=== PATIENT | male | born 2000 | race African-American/Black ===

== ENCOUNTER 2022-04-14 09:12 | Emergency (ER) | payer BC, SELFPAY ==
[2022-04-14] VITALS (36 sets, daily range): BP systolic 138–165; BP diastolic 54–84; PULSE 46–70; RESP 9–24; TEMP 36.2–36.8; O2SAT 98–100
--- NOTE | 2022-04-14 09:00 | RT.EKG_ITS ---
APPROVED REPORT Exam: Resting ECG Reason for Exam: chest pain Patient Location: E HR:58 bpm ECG Measurements Heart Rate 58 AXIS [place] 185 P 57 QRSd 92 QRS 57 QT 386 T 9 QTc 380 Conclusion Bradycardia with irregular rate...V-rate 52- 70, mean < 60
--- NOTE | 2022-04-14 09:21 | ED.GENADUL_ITS ---
Discharge Plan Disposition Patient Disposition: Against Medical Advice Discharge Details Chief Complaint: Chest Pain Clinical Impression: Chest pain, COVID Primary Care Provider: Rosy,Local ED Provider: Raj Quiles Home Meds and New Rx's Prescriptions: No Action No Known Home Meds Discharge Instructions Instructions: COVID-19 (Coronavirus Disease 2019) (ED) Additional Instructions: you tested positive for covid and your blood work showed you likely have inflammation of the heart follow up with your primary care provider as soon as possible if you have worsening pain, difficulty breathing or persistent vomiting return to the emergency department Medical Decision Making 21 yo male who denies chronic medical problems, no smoking/alcohol/drug use, comes in with chest pain for the last 3 days primarily when he wakes up in the morning. Denies dyspnea, fevers, chills, back pain, abdominal pain, radiation of pain, diaphoresis, n/v. He states it feels like an ache in the anterior chest. No known trauma. He arrives stable and speaking clearly in no distress, clear lung sounds, no murmurs, no jvd, no leg swelling or calf tenderness, soft nontender abdomen. Heart score is 0, will obtain troponin. He is perc negative so doubt PE and no tearing back pain to suggest dissection. pt stable resting comfortable in bed in no distress and denies any pain. His troponin surprisingly came back at over 600. Will initiate heparin and asa and discuss further with cardiology at [facility] [place] pt positive for covid, denies any respiratory symptoms or fevers, not vaccinated. 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 Pt remains pain free and asymptomatic now. pt had echo, results not back but advised he wants to leave. I discussed with him the risks of leaving including potential and permanent disability and he still wants to leave and accepts these risks. He is of sound mind, caox4 and has decision making capacity. He is leaving AGAINST MEDICAL ADVISE. He understands he can return at any time if he changes his mind and advised to f/u with his pcp shahbaz Differential Diagnosis Differential Diagnosis: chest wall pain, pleurisy Imaging Data Radiologic Study: Attestation: I personally reviewed and interpreted this imaging study as follows: Imaging: X-Ray My impression: no acute findings Lab Data Lab results reviewed: Yes I reviewed the patient's lab results. ECG Data Attestation: I personally reviewed and interpreted this ECG (s) as follows: Prior ECG tracings: not available for review Interpretation: sinus bradycardia, rate of 58, no acute st t wave ischemic findings sinus bradycardia rate of 52, no acute ischemic changes HPI General Mode of arrival: ambulatory . Date/Time Provider Initiated Documentation: 04/14/22 09:13 . Limitations to Documentation: no limitations . Information obtained by: patient . History of Present Illness 21 year old M presents to the emergency department with the chief complaint of chest pain, described as moderate, Quality is described as aching, Patient started experiencing this day(s) (3) and it has been intermittent. No relieving factors improve symptom(s), No exacerbating factors reported . Patient notes no other symptoms.; denies fever/chills and shortness of breath. Patient did receive the following treatments prior to arrival, none Related Data Home Medications Medication Instructions Recorded Confirmed Unknown [No Known Home Meds] 04/14/22 04/14/22 Allergies Allergy/AdvReac Type Severity Reaction Status Date / Time No Known Allergies Allergy Unverified 04/14/22 09:24 General Stated Complaint: Chest Pain ELENA: 2 Review of Systems All systems reviewed & are unremarkable except as noted in HPI and below Constitutional Constitutional: Denies chills, Denies fever(s) and Denies weakness Cardiovascular Cardiovascular: Denies dyspnea Respiratory Respiratory: Denies cough and Denies dyspnea Gastrointestinal Gastrointestinal: Denies abdominal pain, Denies nausea and Denies vomiting Genitourinary Genitourinary: Denies dysuria Musculoskeletal Musculoskeletal: Denies joint swelling Integumentary/Breasts Skin/Breast: Denies rash Neurologic Neurologic: Denies weakness PFSH All Active Problems (Updated 04/14/22 @ 13:28 by Raj Quiles MD) Chest pain (Acute) COVID (Acute) Social History Smoking/Tobacco Use Status: Never Smoking risk assessment performed?: Yes Alcohol Intake: never Drug use: Never Substance use type: does not use Do you feel safe at home: Yes Do you feel safe in your relationship?: Yes Exam Const General: no acute distress Orientation: alert HENMT Head: normal to inspection Ears: external ears normal General nose exam: external nose normal Mouth: moist mucous membranes Eyes General: appearance normal, both eyes and all related structures Neck Neck: normal visual inspection Resp Effort & Inspection: normal respiratory effort and able to speak in complete sentences Auscultation: clear to auscultation bilaterally Cardio Jugular venous pressure: no JVD Rate: regular rate and not tachycardic Heart Sounds: no murmurs GI Palpation: soft and nontender Skin General skin exam: no rashes or lesions noted Neuro General: patient alert and patient oriented x3 Extrem General: normal to inspection Psych Mental Status: mental status grossly normal Course Vital Signs Vital signs: Vital Signs Temperature 36.2 C L 04/14/22 09:17 Pulse 55 L 04/14/22 09:17 Respiratory Rate 21 04/14/22 09:17 Blood Pressure 165/78 H 04/14/22 09:17 Pulse Oximetry 99 04/14/22 09:17 Temperature 36.2 C L 04/14/22 09:17 Pulse 55 L 04/14/22 09:17 Respiratory Rate 21 04/14/22 09:17 Respiratory Effort Non-Labored, Short of Breath 04/14/22 09:19 Blood Pressure 165/78 H 04/14/22 09:17 Blood Pressure Position Supine 04/14/22 09:17 Pulse Oximetry 99 04/14/22 09:17 Oxygen Delivery Method Room Air 04/14/22 09:17 Oxygen Flow Rate 0 04/14/22 09:17 Pain Level 3 04/14/22 09:17
--- NOTE | 2022-04-14 09:30 | DI.RAD_ITS ---
Exam(s) XR CHEST 2V PA LATERAL EXAM: XR CHEST 2V PA LATERAL CLINICAL HISTORY: chest pain. TECHNIQUE: 2D digital imaging was performed. COMPARISON: No exams were available for comparison FINDINGS: 2 views: Heart size is normal. The mediastinum is not widened. Lungs are clear. No infiltrates nor pleural effusions. IMPRESSION: No acute pulmonary findings. DATA REPOSITORY: RADIATION DOSE DELIVERED:
[2022-04-14 09:53] LABS: Abs Immature Grans 0.01 10^3/uL (0.0-0.06); Absolute Basophil Count 0.03 10^3/uL (0.0-0.2); Absolute Eosinophil Count 0.11 10^3/uL (0.0-0.7); Absolute Lymphocyte Count 2.57 10^3/uL (1.2-3.4); Absolute Monocyte Count 0.48 10^3/uL (0.1-0.8); Absolute Neutrophil Count 2.04 10^3/uL (1.2-6.7); Basophils % 0.6; Eosinophils % 2.1; HCT 49.6 % (40.0-50.0); HGB 15.5 g/dL (13.5-17.5); Immature Grans % 0.2; MCH 28.4 pg (27.0-33.0); MCHC 31.3 % (32.0-36.0); MCV 91 fL (80-95); MPV 12.1 fL (8.0-11.0); Monocytes % 9.2; Neutrophils % 38.9; Platelet Count 214 10^3/uL (130-400); RBC 5.46 10^6/uL (4.36-5.78); RDW 11.9 % (11.8-14.1); RDW-SD 39.8 fL; WBC 5.24 10^3/uL (4.4-10.8)
[2022-04-14 10:10] LABS: ALT 44 U/L (16-63); AST 30 U/L (15-37); Albumin 4.4 g/dL (3.4-5.0); Alkaline Phosphatase 92 U/L (46-116); Anion Gap 7.3 mmol/L (3-11); BUN 10 mg/dL (7-18); Bilirubin, Total 0.9 mg/dL (0.2-1.0); CO2 28.7 mmol/L (21.0-32.0); CREATININE 1.1 mg/dL (0.70-1.30); Calcium 9.4 mg/dL (8.5-10.1); Chloride 102 mmol/L (98-107); Estimated GFR 96.74 (mL/min/1.73m2); Glucose 94 mg/dL (74-106); Lipase 27 U/L (16-77); Magnesium 1.9 mg/dL (1.8-2.4); Potassium 4.1 mmol/L (3.5-5.1); Sodium 138 mmol/L (136-145); Total Protein 8.5 g/dL (6.4-8.2)
[2022-04-14 10:12] LABS: Troponin I 692 ng/L (<or=60)
[2022-04-14 10:39] LABS: Source Nasal/Nares
[2022-04-14] MEDS: Aspirin 325 MG TAB PO (10:47)
[2022-04-14 10:57] LABS: PTT Activated 26.2 sec (21.5-31.9)
--- OUTSIDE RECORDS SUMMARY | 2022-04-14 11:05 | XMS_ITS | Continuity of Care Document ---
Author Name Unknown Address [address] [place], [place] [address] Phone Organization [facility] Address [address] [place], [place] [address] Phone Care Team Providers Care Bowl Sander Name Role Phone Giselle Clay Primary Care Provider DELIA Figueroa Emergency Provider Allergies, Adverse Reactions, Alerts No known allergies Social History Smoking Status Status Start Date End Date Date of Observa tion Never smoked tobacco (finding) February 17, 2022 9:16am Observation Status Observation Response Date of Response Alcohol Use Yes February 17 9:16am alcohol intake frequency holidays/special occasi ons only February 17, 2022 9:16am substance use type does not use February 9:16am Smoking Status Never smoker February 17 9:16am Additional Data Assigned Sex Male Problems Active Problems Medical Problem Onset Date Status Left ankle sprain Active Medications Medication Status Dose Units Route Directions Qty Days St art Date End Date Instructions Betamethasone Dipropionate Active APPLIC TOP February 17, 2022 12:00am Procedures Procedure Date Performed Status Ankle 3 vw Min LT February 17, 2022 9:19am com pleted Relevant Diagnostic Tests and/or Laboratory Data Diagnostic Imaging Reports Report Dictated Date/Time Dictated By Status Radiology Report February 17, 2022 9:43am Luli Corea MD completed [facility] RADIOLOGY REPORT PATIENT NAME: JANNA MURRELL 89 DATE OF : 2000 ATTENDING/ER PHYSICIAN: ER/ATTENDING PHYSICIAN: GIANFRANCO Calderon PRIMARY CARE PHYS: MOUNA Rajan ADMITTING PHYSICIAN: CONSULTING PHYSICIAN: PROCEDURE DATE: 02/17/22 REPORT STATUS: Signed DICTATING PHYSICIAN: Luli Corea MD REASON FOR EXAM: left medial malleolar tenderness s/p jumping inj EXAMINATION: XR ANKLE, LEFT CLINICAL INFORMATION: Medial malleolar tenderness status post jumping injury. COMPARISON: None TECHNIQUE: AP, lateral, and mortise views of the left ankle. FINDINGS: There is no acute fracture or dislocation. Ankle joint is well aligned. Joint spaces are preserved. There is an os trigonum. There is mild soft tissue swelling around the ankle joint. There is no radiopaque foreign body. IMPRESSION: No evidence of an acute fracture or dislocation. dd: 02/17/2243 <Electronically signed by Luli Corea MD in OV> 02/17/22 0947 Vital Signs Vital Reading Result Reference Range Collection Date/Time Height 69 [in_i] February 17, 2022 9:01am Weight 129.27 kg February 17, 2022 9:01am Body Temperature 98 [degF] 97.6-99.6 February 172021 9:01am Heart Rate 61 /min 60-100 February 17, 2022 9:01am Respiratory rate 18 /min 12-24 February 172021 9:01am Oxygen saturation by Pulse oximetry 99 % 95-100 February 17, 2022 9:01am BP Systolic 142 mm[Hg] 100-140 February 17, 2022 9:01am BP Diastolic 92 mm[Hg] 50-85 February 17, 2022 9:01am Advance Directives Advance Directive Response Recorded Date/ Time Does patient have an Advance Directive? No February 17, 2022 8:37am Does patient have a COLST form? No February 17, 2022 8:37am Insurance Providers Guarantor JANNA BETANCOURTO Address [address] [place] [id number] Contact Info. Home Phone: Payer Policy Id Coverage Id Subscriber's Name Subscriber Id Effective Date Expiration Date [facility] [id number] JANNA MURRELL [id number] 000 Encounters Encounter Location(s) Arrival/Admit Date Discharge/Depart Date Provider(s) Departed Emergency [facility] February 17, 2022 8:31am February 17, 2022 10:11am null Functional Status Observation Response Date Recorded Living Situation Home February 17, 2022 9:01am With Roommate February 17, 2 022 9:01am Plan of Treatment Future Tests Future scheduled test information is unavailable Pending Tests Pending diagnostic test information is unavailable Future Visits Future appointment information is unavailable Referrals to Other Providers Reason for Referral Referral Start Date Provider Provider Contact Information Provider Address MOUNA Rajan Work Phone: [facility] [address] [facility] [address] Future Procedures Future procedure information is unavailable Future Medications Future medication information is unavailable Patient Instructions Ankle Sprain (DC) Hospital Discharge Instructions Additional Instructions -Rest, ice, compression (janice bandage) and elevation. Ice for 20 min at a time every 3-4 hours. Elevate when resting. -As pain subsides, return to normal activities gradually and advance as tolerated. -Ibuprofen or tylenol as needed for pain. -If no improvement in another 1-2 weeks, followup with ortho for further evaluation.
--- OUTSIDE RECORDS SUMMARY | 2022-04-14 11:05 | XMS_ITS | Continuity of Care Document ---
Author Name Unknown Address [address] [place], [place] [address] Phone Organization [facility] Address [address] [place], [place] [address] Phone Care Team Providers Care Fibrous Plasterer Name Role Phone Giselle Clay Primary Care [...] 17, 2022 9:43am Luli Corea MD completed [facility] RADIOLOGY REPORT PATIENT NAME: JANNA MURRELL [...] 8:37am Insurance Providers Guarantor JANNA BETANCOURTO Address [address] [place] [id number] Contact Info. Home Phone: Payer Policy Id Coverage Id Subscriber's Name Subscriber Id Effective Date Expiration Date [facility] [id number] JANNA MURRELL [id number] Encounters Encounter Location(s) Arrival/Admit Date Discharge/Depart Date Provider(s) Departed Emergency [facility] February 17, 2022 8:31am February 17, 2022 [...] Information Provider Address MOUNA Rajan Work Phone: [facility] [address] [facility] [address] Future Procedures Future procedure information is unavailable [...]
[2022-04-14 11:20] LABS: COVID-19 PCR POSITIVE (Negative)
--- NOTE | 2022-04-14 11:30 | DI.US_ITS ---
APPROVED REPORT EXAM: Comprehensive 2D, Doppler, and color-flow Echocardiogram Patient Location: In-Patient Room/Bed: ER6 Heel Gouger: Marta Alvarez RDCS (AE) Indications: Elevated troponin, Chest pain, +COVID Other Information Study Quality: Adequate. Technically limited study due to exam done bedside er.. Conclusion Normal left ventricular wall thickness and chamber size. Estimated ejection fraction is 55%. Wall m otion is normal Normal right ventricular size and systolic function Both atria are normal in size There is no structural or hemodynamically significant valvular disease Wall motion Left Ventricle The left ventricle is normal size. The overall left ventricular systolic function appears normal. The re is normal left ventricular wall thickness. There is no ventricular septal defect visualized. LVEF is 55%. Right Ventricle Right ventricle is grossly normal in size. Right ventricular systolic function is grossly normal. Atria The left atrium size is normal. The right atrium size is normal. The interatrial septum is intact wit h no evidence for an atrial septal defect. Aortic Valve The aortic valve is normal in structure. Aortic valve is trileaflet. There is no aortic valvular sten osis. No aortic regurgitation is present. Mitral Valve The mitral valve is normal in structure. No evidence of mitral valve stenosis. Trace mitral regurgita tion. Tricuspid Valve The tricuspid valve is normal in structure. There is no tricuspid valve stenosis. Trace tricuspid reg urgitation. Unable to assess PA pressure. Pulmonic Valve The pulmonary valve is normal in structure. There is no pulmonic valvular stenosis. Trace pulmonic re gurgitation. Great Vessels The aortic root is normal in size. The ascending aorta is normal in size. Aortic arch is normal in ca liber. IVC is normal in size and collapses >50% with inspiration. Pericardium There is no pericardial effusion. 2D Dimensions IVSD d PLAX 1.23 cm M: 0.6-1.2 LV Vol A2C d MOD 176.1 mL LVPW d PLAX 1.20 cm M: 0.6 - 1.2 LV Vol A4C d MOD 171.4 mL LVID d PLAX 5.35 cm M: 4.2 - 5.8 LA vol/ BSA A2C s A-L 21.9 mL/m2 LVDs 3.75 cm M: 2.5 - 4.0 LA vol/ BSA A4C s A-L 22.3 mL/m2 Ao Root d 2.77 cm M: 3.1 - 3.7 LA Vol/ BSA Biplane s A-L 23.8 mL/m2 RA Area A4C 11.02 cm2 LA Area A4C s MOD 19.42 cm2 RA Vol/ BSA A4C s A-L 11.5 mL/m2 LA Area A2C s MOD 17.82 cm2 Ao Asc Diam d 2.93 cm M: 2.6 - 3.4 LV EF A4C MOD 55.8 % LV EF Teichholz 56.0 % LV EF A2C MOD 55.4 % LVEF (De Luna's) 55.29 % M: 52 - 72 LV EF Biplane MOD 55.3 % LV Volume 125.17 mL M: 62 - 150 SV 98.39 mL LV Volume Index 50.88 mL/m2 M: 34 - 74 SV Index 40.03 mL/m2 LV Vol Biplane MOD 177.9 mL FS 29.50 % M-Mode TAPSE 2.45 cm (M/F) >1.7 LV Diastology MV E' medial 0.099 (>0.07 m/s) E/A Ratio 2.2 LV E/e MED 8.75 (<14) MV E Vmax 0.87 (0.4-1.3 m/s) MV E' lateral 0.159 (>0.1 m/s) MV A Vmax 0.40 (0.4-1.3 m/s) LV E/e LAT 5.45 (<14) MV E/A Ratio 1.97 MV E/E' medial 8.75 MV E/E' lateral 5.46 Aortic Valve LVOT Area 3.60 cm2 AoV Area Vmax 3.55 cm2 LVOT Vmax 1.25 m/s AoV Area/ BSA (Vmax) 1.44 cm2/m2 LVOT Mean Jeferson. 0.80 m/s RINKU Mean Jeferson. 3.22 cm2 LVOT Peak Grad 6.2 mmHg RINKU Mean Jeferson. Index 1.31 cm2/m2 LVOT Mean Grad 3.0 mmHg LVOT VTI 0.266 m LVOT Diam s 2.10 cm AoV Vmax 1.26 m/s Velocity Ratio 0.99 AoV Mean Jeferson. 0.89 m/s AoV Peak Grad 6.4 mmHg LVOT SV 95.62 mL AoV Mean Grad 3.5 mmHg AoV VTI 0.257 m AoV Area VTI 3.72 cm2 AoV Area/ BSA (VTI) 1.51 cm/m2 Mitral Valve MV DT 173 (160-240 msec) MV PHT 50 msec MV Area PHT 4.39 cm2 MV VTI 0.280 m MV Area VTI 3.41 (4.0-6.0 cm2) Pulmonary Valve PV Vmax 1.20 (0.5-1.5 m/s) RVOT Peak Gr. 2.19 mmHg PV Peak Grad 5.7 mmHg RVOT Mean Gr. 1.00 mmHg PV Mean Grad 2.6 mmHg RVOT VTI 0.188 m PV VTI 0.259 m RVOT Vmax 0.74 m/s
--- NOTE | 2022-04-14 12:00 | RT.EKG_ITS ---
APPROVED REPORT Exam: Resting ECG Reason for Exam: chest pain Patient Location: E HR:52 bpm ECG Measurements Heart Rate 52 AXIS ID 193 P 84 QRSd 85 QRS 57 QT 395 T 17 QTc 369 Conclusion Sinus bradycardia...rate< 60
[2022-04-14 12:11] LABS: Troponin I 1278 ng/L (<or=60)
== END 2022-04-14 13:41 | disposition left against medical advice (07) ==
PROVIDERS: Emergency Provider Emergency Medicine
DX: U07.1 COVID-19 (principal); Z53.29 Procedure and treatment not carried out because of patient's decision for other reasons
CPT/HCPCS: 36415; 76604; 80053; 83690; 87635; 93005; 96365; 96366; 99284; 71046; 83735; 84484; 85025; 85730; 93010; 93306; 99285